=== PATIENT | female | born 1950 | race Caucasian/White ===

== ENCOUNTER 2017-11-11 00:44 | Emergency (ER) | payer OTHER ==
[~2017-11-11] VITALS: Ht 154.9 cm; Wt 68.0 kg
[2017-11-11 01:03] VITALS: Ht 154.9 cm; Wt 68.0 kg
[2017-11-11 01:14] VITALS: BP 115/71
== END 2017-11-11 01:14 | disposition other institution (70) ==
LOC: ED 00:44
DX: Z02.89 Encounter for other administrative examinations (principal)